=== PATIENT | female | born 1995 | race Caucasian/White ===

== ENCOUNTER 2017-10-03 18:38 | Emergency (ER) | payer OTHER ==
[~2017-10-03] VITALS: Ht 165.1 cm; Wt 73.7 kg
[~2017-10-03 18:38] MED LIST: BCPILLS PO; FLV1 PO; MELO15TA4 PO; NORT10CA2 PO; ORNI125 INJ
[2017-10-03 18:46] VITALS: TEMP 36.9; Ht 165.1 cm; Wt 73.7 kg
[2017-10-03] MEDS ORDERED: OSELTAMIVIR PHOSPHATE 75 MG CAP PO STA (18:57)
[2017-10-03] MEDS ORDERED: SODIUM CHLORIDE 0.9% 1000ML 2,000 ML IV STA (18:57)
[2017-10-03] MEDS ORDERED: ALBUT/IPRATROP 3MG/0.5MG NEB 3 ML VIAL INH STA (18:57)
[2017-10-03] MEDS ORDERED: OPTIRAY 320 IV PRN (19:15)
[2017-10-03 19:29] VITALS: O2SAT 95
[2017-10-03] MEDS ORDERED: HYDR200T5 PO (19:30)
[2017-10-03] MEDS ORDERED: MULT-506 PO (19:30)
[2017-10-03 19:33] LABS: BASO % 0.2 %; BASO ABS # 0.01 K/uL (0-0.2); EOS % 2.5 %; EOS ABS # 0.14 K/uL (0-0.5); HEMATOCRIT 41.3 % (37-47); IG# 0.01 K/uL (0.00-0.02); LYMPH % 22.8 %; LYMPH ABS # 1.29 K/uL (1.2-3.4); MEAN CELL VOLUME 86.9 fL (80-100); MEAN CORPUSCULAR HEMOGLOBIN 29.5 pg (25-34); MEAN CORPUSCULAR HGB CONC 33.9 g/dl (32-36); MEAN PLATELET VOLUME 11.1 fL (7.4-10.4); MONO % 9.3 %; MONO ABS # 0.53 K/uL (0.11-0.59); NEUT ABS # 3.69 K/uL (1.4-6.5); PLATELET COUNT 159 K/uL (130-400); RED CELL DISTRIBUTION WIDTH CV 14.3 % (11.5-14.5); RED CELL DISTRIBUTION WIDTH SD 45.8 fL (36.4-46.3); WHITE BLOOD COUNT 5.67 K/uL (4.8-10.8)
[2017-10-03 19:52] LABS: ALBUMIN 3.4 gm/dl (3.4-5.0); ALT/SGPT 17 U/L (12-78); BLOOD UREA NITROGEN 13 mg/dl (7-18); CALCIUM 8.3 mg/dl (8.5-10.1); CARBON DIOXIDE 23 mmol/L (21-32); GLUCOSE 85 mg/dl (70-99); LIPASE 70 U/L (73-393); SODIUM 135 mmol/L (136-145)
[2017-10-03 19:57] LABS: ALKALINE PHOSPHATASE 52 U/L (45-117); AST/SGOT 16 U/L (15-37); TOTAL PROTEIN 7.3 gm/dl (6.4-8.2)
--- NOTE | 2017-10-03 20:24 | DIAGNOSTIC IMAGING REPORT ---
(CHEST FOR PE) ANGIO WITH CT DOSE: 194.04 mGy.cm HISTORY: Chest pain dyspnea TECHNIQUE: Multiaxial CT images of the chest were performed following the intravenous administration of contrast to evaluate the pulmonary arteries. Maximal intensity projection images were also obtained. A dose lowering technique was utilized adhering to the principles of ALARA. COMPARISON STUDY: None. FINDINGS: There is a normal caliber thoracic aorta with no evidence for dissection. There is no evidence for pulmonary embolus. No pleural effusions. No pneumothorax. The liver and spleen are unremarkable. No mediastinal or hilar lymphadenopathy. The central airways are patent. The lungs are clear. IMPRESSION: No evidence for pulmonary embolus. The above report was generated using voice recognition software. It may contain grammatical, syntax or spelling errors. Electronically signed by: Salvatore Flores M.D. 10/03/2017 8:23 PM Dictated Date/Time: 10/03/2017 8:21 PM
--- NOTE | 2017-10-03 20:42 | EMERGENCY ROOM VISIT NOTE ---
History Report prepared by Christen: Jenny Hall Under the Supervision of: Dr. Tima Coker M.D. First contact with patient: 18:55 Chief Complaint: FLU LIKE SX Stated Complaint: FLU, ELEVATED HEART RATE, CHEST TIGHTNESS- [facility] REF History of Present Illness The patient is a 22 year old female who presents to the Emergency Room with complaints of persistent cough starting 3 days ago. The patient was sent to the ED from [facility] where she had a positive flu and D-dimer. Last week, she started feeling fatigued. Her cough started 3 days ago and worsened the next day. She complains of chest tightness and SOB. She measured a fever at home. She denies any leg pain or swelling, diarrhea, nausea, vomiting, or urinary symptoms. The patient has a history of juvenile rheumatoid arthritis. Her uncle in his 20s of [place]. She is on oral control. She denies any chance of . She has a history of exercise induced asthma. She has not been using her inhaler. She had no known sick contacts. Source of History: patient Onset: 3 days ago Position: other (global) Quality: other (cough) Timing: other (persistent) Associated Symptoms: + fevers, + chest pain, + SOB, + fatigue, No nausea, No vomiting, No diarrhea, No urinary symptoms Note: Pt denies leg pain/swelling. Review of Systems See HPI for pertinent positives and negatives. A total of ten systems were reviewed and were otherwise negative. Past Medical & Surgical Medical Problems: (1) Arthritis Family History Heart disease Social History Smoking Status: Never Smoker Occupation Status: [employer] student Current/Historical Medications Scheduled Abatacept (Orencia), 125 MG INJ WEEKLY Control Pills ( Control Pills), 1 TAB PO DAILY Hydroxychloroquine Sulfate (Plaquenil), 1 TAB PO QPM Multivitamin (Multivitamin), 1 TAB PO DAILY Nortriptyline (Pamelor), 10 MG PO HS Allergies Coded Allergies: No Known Allergies (Unverified , 10/03/17) Physical Exam Vital Signs Date Time Temp Pulse Resp B/P (MAP) Pulse Ox O2 Delivery O2 Flow Rate FiO2 10/03/17 21:00 99 18 120/81 98 Room Air 10/03/17 20:00 110 10/03/17 19:29 95 Room Air 10/03/17 18:46 36.9 105 16 126/81 97 Room Air Physical Exam GENERAL: Awake, alert, fatigued-appearing, in no distress HENT: Normocephalic, atraumatic. Boggy nasal turbinates. Dry cracked mucous membranes. Mild injection in posterior pharynx. No edema or exudate. EYES: Normal conjunctiva. Sclera non-icteric. NECK: Supple. No nuchal rigidity. FROM. No JVD. RESPIRATORY: Clear to auscultation. CARDIAC: Sinus tachycardia, normal rhythm. Extremities warm and well perfused. Pulses equal. ABDOMEN: Soft, non-distended. No tenderness to palpation. No rebound or guarding. No masses. RECTAL: Deferred. MUSCULOSKELETAL: Chest examination reveals no tenderness. The back is symmetrical on inspection without obvious abnormality. There is no CVA tenderness to palpation. No joint edema. LOWER EXTREMITIES: Calves are equal size bilaterally and non-tender. No edema. No discoloration. NEURO: Normal sensorium. No sensory or motor deficits noted. SKIN: No rash or jaundice noted. Medical Decision & Procedures ER Provider Diagnostic Interpretation: Radiology results as stated below per my review and radiologist interpretation: (CHEST FOR PE) ANGIO WITH CT DOSE: 194.04 mGy.cm HISTORY: Chest pain dyspnea TECHNIQUE: Multiaxial CT images of the chest were performed following the intravenous administration of contrast to evaluate the pulmonary arteries. Maximal intensity projection images were also obtained. A dose lowering technique was utilized adhering to the principles of ALARA. COMPARISON STUDY: None. FINDINGS: There is a normal caliber thoracic aorta with no evidence for dissection. There is no evidence for pulmonary embolus. No pleural effusions. No pneumothorax. The liver and spleen are unremarkable. No mediastinal or hilar lymphadenopathy. The central airways are patent. The lungs are clear. IMPRESSION: No evidence for pulmonary embolus. The above report was generated using voice recognition software. It may contain grammatical, syntax or spelling errors. Electronically signed by: Salvatore Flores M.D. 10/03/2017 8:23 PM Dictated Date/Time: 10/03/2017 8:21 PM Laboratory Results 10/03/17 19:20 Red Blood Count 4.75, Mean Corpuscular Volume 86.9, Mean Corpuscular Hemoglobin 29.5, Mean Corpuscular Hemoglobin Concent 33.9, Mean Platelet Volume 11.1, Neutrophils (%) (Auto) 65.0, Lymphocytes (%) (Auto) 22.8, Monocytes (%) (Auto) 9.3, Eosinophils (%) (Auto) 2.5, Basophils (%) (Auto) 0.2, Neutrophils # (Auto) 3.69, Lymphocytes # (Auto) 1.29, Monocytes # (Auto) 0.53, Eosinophils # (Auto) 0.14, Basophils # (Auto) 0.01 10/03/17 19:20 Test 10/03/17 19:20 White Blood Count 5.67 K/uL (4.8-10.8) Red Blood Count 4.75 M/uL (4.2-5.4) Hemoglobin 14.0 g/dL (12.0-16.0) Hematocrit 41.3 % (37-47) Mean Corpuscular Volume 86.9 fL (80-100) Mean Corpuscular Hemoglobin 29.5 pg (25-34) Mean Corpuscular Hemoglobin Concent 33.9 g/dl (32-36) Platelet Count 159 K/uL (130-400) Mean Platelet Volume 11.1 fL (7.4-10.4) Neutrophils (%) (Auto) 65.0 % Lymphocytes (%) (Auto) 22.8 % Monocytes (%) (Auto) 9.3 % Eosinophils (%) (Auto) 2.5 % Basophils (%) (Auto) 0.2 % Neutrophils # (Auto) 3.69 K/uL (1.4-6.5) Lymphocytes # (Auto) 1.29 K/uL (1.2-3.4) Monocytes # (Auto) 0.53 K/uL (0.11-0.59) Eosinophils # (Auto) 0.14 K/uL (0-0.5) Basophils # (Auto) 0.01 K/uL (0-0.2) RDW Standard Deviation 45.8 fL (36.4-46.3) RDW Coefficient of Variation 14.3 % (11.5-14.5) Immature Granulocyte % (Auto) 0.2 % Immature Granulocyte # (Auto) 0.01 K/uL (0.00-0.02) Anion Gap 8.0 mmol/L (3-11) Est Creatinine Clear Calc Drug Dose 110.9 ml/min Estimated GFR () 121.3 Estimated GFR (Non- 104.7 BUN/Creatinine Ratio 15.7 (10-20) Calcium Level 8.3 mg/dl (8.5-10.1) Total Bilirubin 0.2 mg/dl (0.2-1) Direct Bilirubin < 0.1 mg/dl (0-0.2) Aspartate Amino Transf (AST/SGOT) 16 U/L (15-37) Alanine Aminotransferase (ALT/SGPT) 17 U/L (12-78) Alkaline Phosphatase 52 U/L (45-117) Troponin I < 0.015 ng/ml (0-0.045) Total Protein 7.3 gm/dl (6.4-8.2) Albumin 3.4 gm/dl (3.4-5.0) Lipase 70 U/L (73-393) Human Chorionic Gonadotropin, Qual NEG (NEG) Laboratory results reviewed by me Medications Administered Medications (Trade) Dose Ordered Sig/Bishop Route Start Time Stop Time Status Last Admin Dose Admin Oseltamivir Phosphate (Tamiflu Cap) 75 mg NOW STAT PO 10/03/17 18:57 10/03/17 19:03 DC 10/03/17 19:32 75 MG Albuterol/ Ipratropium (Duoneb) 3 ml NOW STAT INH 10/03/17 18:57 10/03/17 19:03 DC 10/03/17 19:32 3 ML Sodium Chloride 2,000 ml @ 999 mls/hr Q2H1M STAT IV 10/03/17 18:57 10/03/17 20:57 DC 10/03/17 19:39 999 MLS/HR ECG Indication: chest pain Rate (beats per minute): 85 Rhythm: sinus with SA Findings: no acute ischemic change, other (normal axis) ED Course 1855: The patient was evaluated in room B5. A complete history and physical exam was performed. 2054: I reevaluated the patient. Discussed results and discharge instructions: She verbalized understanding and agreement. The patient is ready for discharge. Medical Decision I reviewed the patient's past medical history, medications, and the nursing notes as described above. Differential diagnosis: Etiologies such as infections, reactive airway disease, pneumonia, pneumothorax , COPD, CHF, cardiac ischemia, pulmonary embolism, musculoskeletal, gastrointestinal, influenza, as well as others were entertained. The patient is a 22-year-old woman with a past medical history of exercise induced asthma and autoimmune arthritis on Abatacept and Hydroxychloroquine since emergency Department after being seen at [facility] for cough and congestion for the past several days and tested positive for influenza but also had an elevated D-dimer per HPI. Arrival the patient is no acute distress, afebrile with stable vital signs. Given the patient's positive d-dimer the setting of her chest pain a CT PE was done and negative for PE or pneumonia. EKG remarkable. Labs otherwise unremarkable including WBC and troponin within normal limits. Patient feeling improved after IV fluids and neb. Thus given the patient is currently afebrile with reassuring labs no indication for further infectious workup despite the patient's baseline immunocompromise status. Plan for close [facility] f/u. Given Rx from [facility] for Tamiflu. First dose given in ED. Findings and plan for follow-up reviewed with patient. Patient agreeable and d/c'd per discharge instructions. Medication Reconcilliation Current Medication List: was personally reviewed by me Blood Pressure Screening Patient's blood pressure: Normal blood pressure Blood pressure disposition: Did not require urgent referral Impression Primary Impression: Substernal chest pain Additional Impression: Influenza Scribe Attestation The scribe's documentation has been prepared under my direction and personally reviewed by me in its entirety. I confirm that the note above accurately reflects all work, treatment, procedures, and medical decision making performed by me. Departure Information Dispostion Home / Self-Care Referrals No Doctor, Assigned (PCP) Patient Instructions ED Chest Pain Angina Stable, ED Flu, My [facility] Additional Instructions Please follow up with [facility] in the next 1-3 days for re-evaluation. Your symptoms are most likely related to the flu. Otherwise, your exam, EKG, lab results, and CT scan did not show signs of an emergent condition at this time. Continue your Tamiflu as you were prescribed. Drink plenty of fluids to ensure hydration. Acetaminophen and ibuprofen for pain or fever as needed. Use your albuterol inhaler every 4 hours as needed for cough. Return to the emergency department for worsening symptoms as described in the accompanying instructions. Problem Qualifiers
[2017-10-03 21:00] VITALS: BP 120/81; PULSE 99; O2SAT 98
== END 2017-10-03 21:15 | disposition home or self-care (01) ==
LOC: C.EDB 18:39
DX: R07.2 Precordial pain (principal); J11.1 Influenza due to unidentified influenza virus with other respiratory manifestations; J45.909 Unspecified asthma, uncomplicated; M08.00 Unspecified juvenile rheumatoid arthritis of unspecified site; Z82.49 Family history of ischemic heart disease and other diseases of the circulatory system; Z79.899 Other long term (current) drug therapy